=== PATIENT | female | born 1950 | race Caucasian/White ===

== ENCOUNTER → 2019-10-24 09:23 | Outpatient (CLI) | payer MEDICARE, OTHER, SELFPAY | PROVIDERS: PCP Physician Assistant; Referring Provider Obstetrics & Gynecology; Visit Provider Obstetrics & Gynecology | DX: M85.852 Other specified disorders of bone density and structure, left thigh (principal); Z78.0 Asymptomatic menopausal state | CPT/HCPCS: 77080 ==

== ENCOUNTER → 2022-01-12 11:33 | Outpatient (CLI) | payer MEDICARE, OTHER, SELFPAY ==
--- NOTE | 2022-01-12 | DI.MRI.S_ITS ---
PROCEDURE: MR SHOULDER RT WO CON INDICATIONS: Calcific tendinitis of right shoulder TECHNIQUE: Noncontrast oblique coronal T2 fast spin echo with fat saturation, oblique sagittal T1 spin echo and T2 fast spin echo with fat saturation, axial T1 spin echo and T2 fast spin echo with fat saturation through the shoulder. COMPARISON: None. FINDINGS: Image quality: Excellent. Rotator cuff: Postsurgical changes are noted in lateral shoulder soft tissue from prior rotator cuff tendon repair. There is tendinosis and low-grade articular and bursal surface partial thickness tear involving distal supraspinatus at its insertion on the humeral head extending to musculotendinous junction. Distal infraspinatus tendinosis is seen. Distal subscapularis tendinosis is also noted. No full-thickness rotator cuff tendon rupture. Sagittal images demonstrate mild supraspinatus muscle atrophy. Bones and bursae: No bone marrow contusions or fractures. Moderate acromioclavicular joint osteoarthritic changes are seen with joint space narrowing, subchondral sclerosis and cyst formation and inferior marginal osteophyte formation depressing on musculotendinous junction of supraspinatus. The acromion demonstrates conventional anatomy, without an os acromiale. Small amount of subacromial subdeltoid bursal fluid is seen. Capsule and soft tissues: There is signal abnormality and contour irregularity involving superior anterior labrum at 12 to 1 o'clock position. The long head of the biceps tendon demonstrates normal location and morphology. The rotator interval appears normal, without fibrosis. The coracohumeral ligament is normal in thickness. IMPRESSION: 1. Prior rotator cuff tendon repair with postsurgical changes. Moderate acromioclavicular joint osteoarthritis. No gross marrow edema. No fracture or dislocation. Small subacromial subdeltoid bursal fluid. 2. Distal supraspinatus tendinosis and low-grade articular and bursal surface partial thickness tear extending to musculotendinous junction. Distal infraspinatus and subscapularis tendinosis. Very mild supraspinatus muscle atrophy. No full-thickness rotator cuff tendon rupture. 3. Finding is concerning for superior anterior labral tear at 12 to 1 o'clock position. Dictated by: Bunny Samayoa M.D. on 01/12/2022 at 12:49 Approved by: Bunny Samayoa M.D. on 01/12/2022 at 12:52
== END ==
PROVIDERS: PCP Physician Assistant; Referring Provider Orthopaedic Surgery; Visit Provider Orthopaedic Surgery
DX: M75.31 Calcific tendinitis of right shoulder (principal); M75.111 Incomplete rotator cuff tear or rupture of right shoulder, not specified as traumatic; M19.011 Primary osteoarthritis, right shoulder
CPT/HCPCS: 73221

== ENCOUNTER → 2022-05-20 10:42 | Outpatient (CLI) | payer MEDICARE, OTHER, SELFPAY | PROVIDERS: PCP Nurse Practitioner; Referring Provider Nurse Practitioner; Visit Provider Nurse Practitioner | DX: M81.0 Age-related osteoporosis without current pathological fracture (principal); M85.89 Other specified disorders of bone density and structure, multiple sites | CPT/HCPCS: 77080 ==

== ENCOUNTER 2023-04-05 12:08 | Emergency (ER) | payer MEDICARE, OTHER, SELFPAY ==
[2023-04-05] VITALS (14 sets, daily range): BP systolic 104–161; BP diastolic 62–74; PULSE 85–107; RESP 16–32; TEMP 36.6; O2SAT 93–99; BMI 20.1
--- NOTE | 2023-04-05 12:22 | DI.RAD.S_ITS ---
PROCEDURE: XR RIBS BI MIN 4V W CXR1V INDICATIONS: pain TECHNIQUE: 4 views of the bilateral ribs were acquired, along with a single view chest. COMPARISON: None. FINDINGS: Surgical changes and devices: None. Bones and chest wall: No fractures or dislocations. No suspicious bony lesions. Overlying soft tissues appear unremarkable. Lungs and pleura: There is small to moderate amount of left pleural effusion with left basilar atelectasis. No pneumothorax. Mediastinum: Mediastinal contours appear normal. Heart size is enlarged. IMPRESSION: 1. No gross displaced rib fracture is seen. 2. Small to moderate left pleural effusion. Left basilar atelectasis. No pneumothorax. Dictated by: Bunny Samayoa M.D. on 04/05/2023 at 12:59 Approved by: Bunny Samayoa M.D. on 04/05/2023 at 13:05
[2023-04-05 12:41] LABS: INR 1.2 (0.9-1.3); Prothrombin Time 14.1 SECONDS (10.1-12.7)
[2023-04-05 12:43] LABS: Add Manual Diff / Slide Review NO; Basophils Absolute Auto 0 /uL (0-100); Basophils Percent Auto 0.4 % (0-2); Eosinophils Absolute Auto 0 /uL (0-450); Eosinophils Percent Auto 0.2 % (2-4); Hematocrit 32.8 % (36-46); Hemoglobin 11.3 g/dL (12.0-16.0); Lymphocytes Absolute Auto 1300 /uL (1100-4500); Lymphocytes Percent Auto 11.2 % (25-40); Mean Corpuscular HGB Conc 34.3 % (30-36); Mean Corpuscular Hemoglobin 30.4 PG (26-34); Mean Corpuscular Volume 88.5 fL (80-100); Monocytes Absolute Auto 900 /uL (0-900); Neutrophils Absolute Auto 9100 /uL (1500-7000); Neutrophils Percent Auto 80.2 % (50-75); Platelet Count 424 X10^3/uL (150-400); Red Blood Cell Count 3.71 X10^6/uL (4.0-5.2); Red Cell Distribution Width 12.2 % (11.6-14.8); White Blood Cell Count 11.3 X10^3/uL (4.5-11.0)
[2023-04-05 12:44] LABS: PTT Partial Thromboplastin Tim 31 SECONDS (26-36)
[2023-04-05 12:46] LABS: Alanine Aminotransferase 64 IU/L (<35); Albumin 4.1 g/dL (3.5-5.0); Albumin Globulin Ratio 1.2 (1.0-2.8); Alkaline Phosphatase 200 U/L (38-126); Aspartate Aminotransferase 63 IU/L (14-36); BUN Creatinine Ratio 22.5 (6-22); Bilirubin Total 0.6 mg/dL (0.2-1.3); Blood Urea Nitrogen 9 mg/dL (7-17); Calcium 9.4 mg/dL (8.4-10.2); Carbon Dioxide 27 mmol/L (22-32); Chloride 93 mmol/L (98-107); Creatine Kinase 81 U/L (30-135); Estimated Glomerular Filt Rate > 60 mL/min (>60); Globulin 3.4 g/dL (1.7-4.1); Glucose 119 mg/dL (80-110); HEMOLYSIS < 15 (0-50); Lipase 68 U/L (23-300); Magnesium 2.1 mg/dL (1.6-2.3); Potassium 4.2 mmol/L (3.4-5.1); Sodium 128 mmol/L (137-145); Total Protein 7.5 g/dL (6.3-8.2)
[2023-04-05 12:58] LABS: Troponin I < 0.012 ng/mL (0.01-0.034)
--- NOTE | 2023-04-05 14:03 | ED_ITS ---
HPI - Chest Pain General Chief Complaint: Chest Pain Stated Complaint: sent by [facility]/chest pain Time Seen by Provider: 04/05/23 12:22 History of Present Illness HPI narrative: Patient healthy 72-year-old female presents today with left-sided chest discomfort. He reports that a week and a half ago she was helping her they are pulling up crab pots she was pulling up the boot wheeze she thought she strained her right shoulder which had previously had surgery on it. She had some discomfort around her chest which was moving around and today it is mostly on the left side. It is very positional. She reports that it is worse when she lays down better when she sits. She reports that she was taking some shallow breaths because it hurt. It is not really reproducible with palpation. She also thinks that she might have virus small cold. She says she she is had decreased appetite. No fever or chills. She does not have a productive cough. He denies any actual fall or injury. Related Data Home Medications Medication Instructions Recorded Confirmed supplement list scanned to chart PO 05/05/22 04/05/23 Previous Rx's Medication Instructions Recorded colchicine 0.6 mg capsule 0.6 mg PO DAILY #90 caps 04/05/23 colchicine 0.6 mg tablet 0.6 mg PO DAILY #90 tabs 04/05/23 ibuprofen 600 mg tablet 600 mg PO Q8H #120 tabs 04/05/23 omeprazole 20 mg capsule,delayed 20 mg PO DAILY #60 caps 04/05/23 release Allergies Allergy/AdvReac Type Severity Reaction Status Date / Time No Known Drug Allergies Allergy Unverified 04/05/23 11:39 Review of Systems Review of Systems ROS Unobtainable: All systems reviewed & are unremarkable except as noted in HPI and below Patient History Medical History Chicken pox (~1955) Endometriosis (~1979) Measles (~1955) Mumps (~1953) Osteopenia determined by x-ray Rubella (~1963) Shoulder pain (~2020) Tendonitis, calcifying, shoulder Surgical History Anesthesia History of hysterectomy (~1981) Family History Father Congestive heart failure Mother Cancer Social History Smoking Status: Never smoker Smoking Status: Never smoker Exam Initial Vital Signs Initial Vital Signs: Vital Signs Temperature 97.8 F 04/05/23 12:17 Pulse Rate 101 H 04/05/23 12:17 Respiratory Rate 16 04/05/23 12:17 Blood Pressure 131/66 04/05/23 12:17 Pulse Oximetry 99 04/05/23 12:17 Oxygen Delivery Method Room Air 04/05/23 12:17 GENERAL: Alert pleasant 72-year-old female and in no acute distress. HEENT: Head atraumatic,EOMI, pupils reactive, face symmetric, moist mucous membranes CARDIOVASCULAR: Regular rate and rhythm without murmurs, rubs or gallops. RESPIRATORY: No respiratory distress no conversational dyspnea decreased breath sounds on the left no crackles rales or rhonchi ABDOMEN: Soft, nontender. Normoactive bowel sounds all 4 quadrants. No guarding or rebound. EXTREMITIES: Normal range of motion, no clubbing or edema. Neurovascularly intact NEUROLOGICAL: Alert and oriented x4.Normal gait and speech. Cranial nerves II through XII grossly intact. SKIN: Warm, dry, no laceration, no petechiae, no rashes or lesions. Course Orders Ordered: ED Orders 04/05/23 12:20 CRP [C-Reactive Protein Quant] Stat Complete Blood Count AUTO DIFF Stat Comprehensive Metabolic Panel Stat ESR [Erythrocyte Sedimentation Rate] Stat Lipase Stat Magnesium Stat PTT Partial Thromboplastin Josias Stat Procalcitonin Stat Prothrombin Time INR Stat Troponin & CK Cardiac Panel Stat EKG-12 Lead Stat 04/05/23 12:22 XR ribs BI min 4V w CXR1V Stat 04/05/23 14:09 CT chest w con Stat 04/05/23 17:22 Respiratory Panel (Film Array) Stat Discontinued Medications Colchicine (Colchicine 0.6 Mg Tablet) 0.6 mg PO NOW ONE Stop: 04/05/23 16:31 Last Admin: 04/05/23 17:04 Dose: 0.6 mg Documented By: MICKI Ketorolac Tromethamine (Ketorolac 30 Mg/Ml Vial) 15 mg IV NOW ONE Stop: 04/05/23 12:23 Last Admin: 04/05/23 12:15 Dose: Not Given Documented By: SHANNON Vital Signs Vital signs: Vital Signs - 8 hr 04/05/23 12:17 04/05/23 12:18 04/05/23 12:20 Temperature 97.8 F Pulse Rate 101 H 107 H 103 H Respiratory Rate 16 Blood Pressure 131/66 Pulse Oximetry 99 97 97 Oxygen Delivery Method Room Air 04/05/23 12:20 04/05/23 12:30 04/05/23 12:30 Temperature Pulse Rate 98 H Respiratory Rate Blood Pressure 135/66 124/63 Pulse Oximetry 97 Oxygen Delivery Method 04/05/23 13:00 04/05/23 13:00 04/05/23 13:30 Temperature Pulse Rate 102 H Respiratory Rate Blood Pressure 135/62 133/74 Pulse Oximetry 98 Oxygen Delivery Method 04/05/23 13:30 04/05/23 14:00 04/05/23 14:00 Temperature Pulse Rate 94 H 93 H Respiratory Rate 21 20 Blood Pressure 137/74 Pulse Oximetry 98 98 Oxygen Delivery Method 04/05/23 14:30 04/05/23 14:30 04/05/23 15:10 Temperature Pulse Rate 98 H 94 H Respiratory Rate 20 27 H Blood Pressure 161/70 H Pulse Oximetry 98 99 Oxygen Delivery Method 04/05/23 15:30 04/05/23 15:38 04/05/23 15:38 Temperature Pulse Rate 88 85 Respiratory Rate 32 H 27 H Blood Pressure 117/66 Pulse Oximetry 93 98 Oxygen Delivery Method 04/05/23 16:00 04/05/23 16:00 04/05/23 16:30 Temperature Pulse Rate 89 Respiratory Rate 24 Blood Pressure 104/65 129/71 Pulse Oximetry 97 Oxygen Delivery Method 04/05/23 16:30 04/05/23 17:00 04/05/23 17:00 Temperature Pulse Rate 89 92 H Respiratory Rate 25 H 27 H Blood Pressure 124/73 Pulse Oximetry 96 97 Oxygen Delivery Method Room Air MDM - Chest Pain Lab Data 04/05/23 12:20 04/05/23 12:20 Labs: Lab Results 04/05/23 04/05/23 04/05/23 Range/Units 12:20 12:20 12:20 WBC 11.3 H (4.5-11.0) X10^3/uL RBC 3.71 L (4.0-5.2) X10^6/uL Hgb 11.3 L (12.0-16.0) g/dL Hct 32.8 L (36-46) % MCV 88.5 (80-100) fL MCH 30.4 (26-34) PG MCHC 34.3 (30-36) % RDW 12.2 (11.6-14.8) % Plt Count 424 H (150-400) X10^3/uL Neut % (Auto) 80.2 H (50-75) % Lymph % (Auto) 11.2 L (25-40) % Emmet % (Auto) 8.0 (3-14) % Eos % (Auto) 0.2 L (2-4) % Baso % (Auto) 0.4 (0-2) % Neut # (Auto) 9100 H (3692-8196) /uL Lymph # (Auto) 1300 (6379-5514) /uL Emmet # (Auto) 900 (0-900) /uL Eos # (Auto) 0 (0-450) /uL Baso # (Auto) 0 (0-100) /uL ESR (0-20) MM/HR PT 14.1 H (10.1-12.7) SECONDS INR 1.2 (0.9-1.3) APTT 31 (26-36) SECONDS Sodium 128 L (137-145) mmol/L Potassium 4.2 (3.4-5.1) mmol/L Chloride 93 L (98-107) mmol/L Carbon Dioxide 27 (22-32) mmol/L BUN 9 (7-17) mg/dL Creatinine 0.40 L (0.52-1.04) mg/dL Estimated GFR > 60 (>60) mL/min BUN/Creatinine Ratio 22.5 H (6-22) Glucose 119 H (80-110) mg/dL Calcium 9.4 (8.4-10.2) mg/dL Magnesium 2.1 (1.6-2.3) mg/dL Total Bilirubin 0.6 (0.2-1.3) mg/dL AST 63 H (14-36) IU/L ALT 64 H (<35) IU/L Alkaline Phosphatase 200 H (38-126) U/L Total Creatine Kinase 81 (30-135) U/L Troponin I < 0.012 (0.01-0.034) ng/mL C-Reactive Protein (<1.0) mg/dL Total Protein 7.5 (6.3-8.2) g/dL Albumin 4.1 (3.5-5.0) g/dL Globulin 3.4 (1.7-4.1) g/dL Albumin/Globulin Ratio 1.2 (1.0-2.8) Lipase 68 (23-300) U/L Procalcitonin (<0.5) ng/mL Chlamy pneumoniae PCR (Not Detect) Adenovirus (PCR) (Not Detect) B. pertussis DNA (PCR) (Not Detecte) B.parapertussis DNA PCR (Not Detecte) Coronavirus OC43 (PCR) (Not Detect) Coronavirus HKU1 (PCR) (Not Detect) Coronavirus 229E (PCR) (Not Detect) SARS-CoV-2 (PCR) (Not Detecte) Coronavirus NL63 (PCR) (Not Detect) Human Metapneumovir PCR (Not Detect) Influenza Type A (PCR) (Not Detect) Influenza Type B (PCR) (Not Detect) M. pneumoniae (PCR) (Not Detect) Parainfluenza 1 (PCR) (Not Detect) Parainfluenza 2 (PCR) (Not Detect) Parainfluenza 3 (PCR) (Not Detect) Parainfluenza 4 (PCR) (Not Detect) RSV (PCR) (Not Detect) Entero/Rhino (PCR) (Not Detect) 04/05/23 04/05/23 04/05/23 Range/Units 12:20 12:20 12:20 WBC (4.5-11.0) X10^3/uL RBC (4.0-5.2) X10^6/uL Hgb (12.0-16.0) g/dL Hct (36-46) % MCV (80-100) fL MCH (26-34) PG MCHC (30-36) % RDW (11.6-14.8) % Plt Count (150-400) X10^3/uL Neut % (Auto) (50-75) % Lymph % (Auto) (25-40) % Emmet % (Auto) (3-14) % Eos % (Auto) (2-4) % Baso % (Auto) (0-2) % Neut # (Auto) (3113-4287) /uL Lymph # (Auto) (6214-5572) /uL Emmet # (Auto) (0-900) /uL Eos # (Auto) (0-450) /uL Baso # (Auto) (0-100) /uL ESR 74 H (0-20) MM/HR PT (10.1-12.7) SECONDS INR (0.9-1.3) APTT (26-36) SECONDS Sodium (137-145) mmol/L Potassium (3.4-5.1) mmol/L Chloride (98-107) mmol/L Carbon Dioxide (22-32) mmol/L BUN (7-17) mg/dL Creatinine (0.52-1.04) mg/dL Estimated GFR (>60) mL/min BUN/Creatinine Ratio (6-22) Glucose (80-110) mg/dL Calcium (8.4-10.2) mg/dL Magnesium (1.6-2.3) mg/dL Total Bilirubin (0.2-1.3) mg/dL AST (14-36) IU/L ALT (<35) IU/L Alkaline Phosphatase (38-126) U/L Total Creatine Kinase (30-135) U/L Troponin I (0.01-0.034) ng/mL C-Reactive Protein 17.5 H (<1.0) mg/dL Total Protein (6.3-8.2) g/dL Albumin (3.5-5.0) g/dL Globulin (1.7-4.1) g/dL Albumin/Globulin Ratio (1.0-2.8) Lipase (23-300) U/L Procalcitonin 0.08 (<0.5) ng/mL Chlamy pneumoniae PCR (Not Detect) Adenovirus (PCR) (Not Detect) B. pertussis DNA (PCR) (Not Detecte) B.parapertussis DNA PCR (Not Detecte) Coronavirus OC43 (PCR) (Not Detect) Coronavirus HKU1 (PCR) (Not Detect) Coronavirus 229E (PCR) (Not Detect) SARS-CoV-2 (PCR) (Not Detecte) Coronavirus NL63 (PCR) (Not Detect) Human Metapneumovir PCR (Not Detect) Influenza Type A (PCR) (Not Detect) Influenza Type B (PCR) (Not Detect) M. pneumoniae (PCR) (Not Detect) Parainfluenza 1 (PCR) (Not Detect) Parainfluenza 2 (PCR) (Not Detect) Parainfluenza 3 (PCR) (Not Detect) Parainfluenza 4 (PCR) (Not Detect) RSV (PCR) (Not Detect) Entero/Rhino (PCR) (Not Detect) 04/05/23 Range/Units 17:22 WBC (4.5-11.0) X10^3/uL RBC (4.0-5.2) X10^6/uL Hgb (12.0-16.0) g/dL Hct (36-46) % MCV (80-100) fL MCH (26-34) PG MCHC (30-36) % RDW (11.6-14.8) % Plt Count (150-400) X10^3/uL Neut % (Auto) (50-75) % Lymph % (Auto) (25-40) % Emmet % (Auto) (3-14) % Eos % (Auto) (2-4) % Baso % (Auto) (0-2) % Neut # (Auto) (7124-9598) /uL Lymph # (Auto) (6506-1199) /uL Emmet # (Auto) (0-900) /uL Eos # (Auto) (0-450) /uL Baso # (Auto) (0-100) /uL ESR (0-20) MM/HR PT (10.1-12.7) SECONDS INR (0.9-1.3) APTT (26-36) SECONDS Sodium (137-145) mmol/L Potassium (3.4-5.1) mmol/L Chloride (98-107) mmol/L Carbon Dioxide (22-32) mmol/L BUN (7-17) mg/dL Creatinine (0.52-1.04) mg/dL Estimated GFR (>60) mL/min BUN/Creatinine Ratio (6-22) Glucose (80-110) mg/dL Calcium (8.4-10.2) mg/dL Magnesium (1.6-2.3) mg/dL Total Bilirubin (0.2-1.3) mg/dL AST (14-36) IU/L ALT (<35) IU/L Alkaline Phosphatase (38-126) U/L Total Creatine Kinase (30-135) U/L Troponin I (0.01-0.034) ng/mL C-Reactive Protein (<1.0) mg/dL Total Protein (6.3-8.2) g/dL Albumin (3.5-5.0) g/dL Globulin (1.7-4.1) g/dL Albumin/Globulin Ratio (1.0-2.8) Lipase (23-300) U/L Procalcitonin (<0.5) ng/mL Chlamy pneumoniae PCR Not detected (Not Detect) Adenovirus (PCR) Not detected (Not Detect) B. pertussis DNA (PCR) Not detected (Not Detecte) B.parapertussis DNA PCR Not detected (Not Detecte) Coronavirus OC43 (PCR) Not detected (Not Detect) Coronavirus HKU1 (PCR) Not detected (Not Detect) Coronavirus 229E (PCR) Not detected (Not Detect) SARS-CoV-2 (PCR) Not detected (Not Detecte) Coronavirus NL63 (PCR) Not detected (Not Detect) Human Metapneumovir PCR Not detected (Not Detect) Influenza Type A (PCR) Not detected (Not Detect) Influenza Type B (PCR) Not detected (Not Detect) M. pneumoniae (PCR) Not detected (Not Detect) Parainfluenza 1 (PCR) Not detected (Not Detect) Parainfluenza 2 (PCR) Not detected (Not Detect) Parainfluenza 3 (PCR) Not detected (Not Detect) Parainfluenza 4 (PCR) Not detected (Not Detect) RSV (PCR) Not detected (Not Detect) Entero/Rhino (PCR) Not detected (Not Detect) Imaging Data Chest x-ray: Radiologist's Impression: PROCEDURE:? XR RIBS BI MIN 4V W CXR1V ? INDICATIONS:? pain ? TECHNIQUE:? 4 views of the bilateral ribs were acquired, along with a single view chest.? ? ? COMPARISON:? None. ? FINDINGS:? ? Surgical changes and devices:? None.? ? Bones and chest wall:? No fractures or dislocations.? No suspicious bony lesions.? Overlying soft tissues appear unremarkable.? ? Lungs and pleura:? There is small to moderate amount of left pleural effusion with left basilar atelectasis.? No pneumothorax. ? Mediastinum:? Mediastinal contours appear normal.? Heart size is enlarged.? ? IMPRESSION:? ? 1. No gross displaced rib fracture is seen. ? 2. Small to moderate left pleural effusion.? Left basilar atelectasis.? No pneumothorax.? CT scan - chest: Radiologist's Impression: PROCEDURE:? CT CHEST W CON ? INDICATIONS:? left pleural effusion pain ? TECHNIQUE:? After the administration of intravenous contrast, 5 mm thick sections acquired from the pulmonary apices to the posterior costophrenic angles.? 1 mm axial lung, 5 mm thick coronal and sagittal reformats and 7 mm axial MIP were acquired.? For radiation dose reduction, the following was used:? automated exposure control, adjustment of mA and/or kV according to patient size.? ? COMPARISON:? None. ? FINDINGS:? Image quality:? Excellent.? ? Lungs and pleura:? Small left pleural effusion with left basilar atelectasis.? No suspicious pulmonary nodules.? No consolidation.? No pleural mass. ? Mediastinum:? Cardiomegaly.? Moderate pericardial effusion with pericardial thickening.? Convex appearance of the atrium and ventricles.? No adenopathy.? No hiatal hernia. ? Bones and chest wall:? No suspicious bony lesions.? No vertebral body compression fractures.? No axillary or supraclavicular adenopathy by size criteria.? Thyroid gland is unremarkable .? ? Abdomen:? Subcentimeter hypoattenuating liver lesion, too small to characterize by CT. ? IMPRESSION:? ? Moderate pericardial effusion with pericardial thickening, concerning for pericarditis.? No evidence of tamponade. ? Small left pleural effusion with left basilar atelectasis.? Etiology uncertain, as there is no mass or pleural lesion.? ? Dictated by: Kevin Bull M.D. on 04/05/2023 at 15:39 ? ? ECG Data Interpretation: Normal sinus rhythm rate 102 MT interval 158 QRS [address] changes intermittent T-wave inversions noted in V3 and V2 No evidence of electrical all trans MDM Narrative Medical decision making narrative: Patient 62-year-old female presenting today with left-sided chest pain. She thought that it was musculoskeletal strain however not really getting better. She is having upper respiratory like symptoms but no fever chills. Blood work is overall reassuring some mild leukocytosis of 11.3. He is had some mild electrolyte abnormalities she is an elevated CRP of 17.5 and an ESR of 74. Chest x-ray does show a pleural effusion which is concerning. She denies any falls. CT was done and actually confirms moderate pericardial effusion and probable pericarditis. Pericarditis correlates clinically with her positional pain. I called and spoken with Dr. Salas on-call cardiology recommends colchicine 0.6 mg daily for 3 months and ibuprofen 600 mg 3 times a day with a PPI. She also recommends an outpatient echocardiogram and cardiology evaluation. I have called and updated patient's PCP cardiology recommendations an echocardiogram and follow-up appointment are scheduled. Discharge Plan Departure Patient Disposition: Home Clinical Impression: Pericarditis, Acute pericardial effusion Instructions: Pericarditis -- Adult Activity Restrictions/Additional Instructions: *You have been diagnosed with pericarditis and pericardial effusion *What to do: At this time you will need an outpatient echocardiogram. [facility] call you about this. You also need cardiology referral. *Continue to take medications as directed --> [facility] Colchicine 0.6 mg once daily for 3 months Ibuprofen 600 mg 3 times a day Omeprazole 40 mg once daily *Follow up with your primary care provider in 2-3 days or call [phone] *Return to ER if you should have increasing chest pain shortness of breath fever or any new, worsening or concerning symptoms Prescriptions: New colchicine 0.6 mg capsule 0.6 mg PO DAILY Qty: 90 0RF ibuprofen 600 mg tablet 600 mg PO Q8H Qty: 120 0RF omeprazole 20 mg capsule,delayed release(DR/EC) 20 mg PO DAILY Qty: 60 0RF colchicine 0.6 mg tablet 0.6 mg PO DAILY Qty: 90 0RF No Action supplement list scanned to chart PO Referrals: Merle Knowles ARNP [Primary Care Provider] - Hope Tenorio DO [Physician] - Stand Alone Forms: Patient Portal/API
--- NOTE | 2023-04-05 14:09 | DI.CT.S_ITS ---
PROCEDURE: CT CHEST W CON INDICATIONS: left pleural effusion pain TECHNIQUE: After the administration of intravenous contrast, 5 mm thick sections acquired from the pulmonary apices to the posterior costophrenic angles. 1 mm axial lung, 5 mm thick coronal and sagittal reformats and 7 mm axial MIP were acquired. For radiation dose reduction, the following was used: automated exposure control, adjustment of mA and/or kV according to patient size. COMPARISON: None. FINDINGS: Image quality: Excellent. Lungs and pleura: Small left pleural effusion with left basilar atelectasis. No suspicious pulmonary nodules. No consolidation. No pleural mass. Mediastinum: Cardiomegaly. Moderate pericardial effusion with pericardial thickening. Convex appearance of the atrium and ventricles. No adenopathy. No hiatal hernia. Bones and chest wall: No suspicious bony lesions. No vertebral body compression fractures. No axillary or supraclavicular adenopathy by size criteria. Thyroid gland is unremarkable . Abdomen: Subcentimeter hypoattenuating liver lesion, too small to characterize by CT. IMPRESSION: Moderate pericardial effusion with pericardial thickening, concerning for pericarditis. No evidence of tamponade. Small left pleural effusion with left basilar atelectasis. Etiology uncertain, as there is no mass or pleural lesion. Dictated by: Kevin Bull M.D. on 04/05/2023 at 15:39 Approved by: Kevin Bull M.D. on 04/05/2023 at 15:42
[2023-04-05 14:43] LABS: Procalcitonin 0.08 ng/mL (<0.5)
[2023-04-05 16:58] LABS: C-Reactive Protein Quant 17.5 mg/dL (<1.0)
[2023-04-05 17:00] LABS: Erythrocyte Sedimentation Rate 74 MM/HR (0-20)
[2023-04-05] MEDS: COLCHICINE 0.6 MG TABLET PO (17:04)
[2023-04-05 18:24] LABS: Adenovirus Not Detected (Not Detect); B. parapertussis Not Detected (Not Detecte); Bordetella pertussis Not Detected (Not Detecte); Chlamydophila pneumoniae Not Detected (Not Detect); Coronavirus 229E Not Detected (Not Detect); Coronavirus HKU1 Not Detected (Not Detect); Coronavirus NL 63 Not Detected (Not Detect); Coronavirus OC43 Not Detected (Not Detect); Human Metapneumovirus Not Detected (Not Detect); Human Rhinovirus/Enterovirus Not Detected (Not Detect); Influenza A Not Detected (Not Detect); Influenza B Not Detected (Not Detect); Mycoplasma pneumoniae Not Detected (Not Detect); Parainfluenza Virus 1 Not Detected (Not Detect); Parainfluenza Virus 2 Not Detected (Not Detect); Parainfluenza Virus 3 Not Detected (Not Detect); Parainfluenza Virus 4 Not Detected (Not Detect); Respiratory Syncytial Virus Not Detected (Not Detect); SARS- CoV-2 Not Detected (Not Detecte)
== END 2023-04-05 17:27 | disposition home or self-care (01) ==
PROVIDERS: Emergency Provider Emergency Medicine; PCP Nurse Practitioner
DX: I31.9 Disease of pericardium, unspecified (principal); I30.9 Acute pericarditis, unspecified
CPT/HCPCS: 36415; 71111; 71260; 80053; 82550; 83690; 83735; 84145; 84484; 85025; 85610; 85651; 85730; 86140; 87633; 93005; 99284

== ENCOUNTER → 2023-04-16 12:58 | Outpatient (CLI) | payer MEDICARE, OTHER, SELFPAY ==
--- NOTE | 2023-04-16 12:59 | DI.ECHO.S_ITS ---
[facility] +---------+ : : [address] : [address] : : : : [id number] : : : : Phone: [phone]---------+ Echocardiogram Report + + :Name: JAKOB SOLANO Study Date: 04/16/2023 Height: 64 in : :[facility] ReadingLocation: Weight: 125 lb : : Gender: Female BSA: 1.6 m2 : :: 1950 Age: 72 yrs BP: 106/66 mmHg: :Reason For Study: Chest Pain : :Ordering Physician: MILAGROS, : :NEO Performed By: Samira Genao : :Referring: NEO LINARES : + + Interpretation Summary The ejection fraction is estimated to be 65-70%. The right ventricle is normal size. There is a small to moderate pericardial effusion noted. There are no echocardiographic indications of cardiac tamponade. Procedure: A two-dimensional transthoracic echocardiogram with color flow and Doppler was performed. The study quality was technically adequate. There is no prior echocardiogram noted for this patient. The patient was in normal sinus rhythm during the exam. Left Ventricle: The left ventricle is normal in size. The ejection fraction is estimated to be 65-70%. Left ventricular wall motion is normal. Diastolic parameters suggest a relaxation abnormality of the left ventricle, consistent with probable normal filling pressures. Right Ventricle: The right ventricle is normal size. The right ventricular systolic function is normal. Atria: The left atrial size is normal. Right atrial size is normal. There is no Doppler evidence for an interatrial shunt. Mitral Valve: The mitral valve leaflets appear mildly thickened, but open well. There is no mitral valve stenosis. There is no mitral regurgitation noted. Aortic Valve: The aortic valve is trileaflet. The aortic valve opens well. There is mild aortic valve sclerosis. There is no aortic valve stenosis. No aortic regurgitation is present. Tricuspid Valve: The tricuspid valve is normal. There is no tricuspid stenosis. There is trace tricuspid regurgitation. Pulmonary artery pressures cannot be estimated because of the lack of a measurable TR jet velocity. Pulmonic Valve: The pulmonic valve leaflets are thin and pliable; valve motion is normal. There is no pulmonic valvular stenosis. There is no pulmonic valvular regurgitation. Great Vessels: The aortic root is normal size. The ascending aorta is normal in size. The pulmonary artery is normal size. The IVC is dilated (diameter is greater than 2.1 cm) yet it collapses greater than 50% with a sniff. This suggests a right atrial pressure of 8 mm Hg. Pericardium/ Pleura There is a small to moderate pericardial effusion noted. There are no echocardiographic indications of cardiac tamponade. There is no pleural effusion. MMode/2D Measurements & Calculations LVIDd: 3.8 cm LVOT diam: 1.9 cm LVIDs: 1.7 cm Ao root diam: 3.0 cm FS: 55.3 % asc Aorta Diam: 3.4 cm IVSd: 1.0 cm LVPWd: 0.90 cm LV sepulveda. diameter/BSA (cm/m^2): 2.4 LV sys. diameter/BSA (cm/m^2): 1.1 LA A2 area: 16.4 cm2 RA long axis: 5.7 cm LA A4 area: 18.3 cm2 RA area: 12.8 cm2 LA length (vol): 5.8 cm RA vol: 24.5 ml LA vol: 43.8 ml RA : 15.3 ml/m2 LA vol index: 27.3 ml/m2 IVC diam: 2.2 cm RVD1 (basal): 2.9 cm LVLs ap4: 5.2 cm LVLd ap2: 6.3 cm TAPSE_phl: 1.9 cm LVLs ap2: 5.1 cm Doppler Measurements & Calculations Ao V2 max: 133.3 cm/sec LVOT Max Anoop: 101.1 cm/sec Ao V2 mean: 91.7 cm/sec LV V1 max P.7 mmHg Ao max P.0 mmHg LV V1 VTI: 18.9 cm Ao mean P.0 mmHg JOSIAH(I,D): 2.1 cm2 Ao V2 VTI: 25.5 cm JOSIAH(V,D): 2.1 cm2 sev ratio: 0.74 JOSIAH indexed to BSA (cm^2/m^2): 1.3 MV E max anoop: 86.4 cm/sec SV(LVOT): 53.6 ml MV A max anoop: 60.0 cm/sec MV E/A: 1.4 Med Peak E' Anoop: 10.7 cm/sec E/E' med: 8.1 Lat Peak E' Anoop: 7.2 cm/sec E/E' lat: 12.1 E/e' average: 10.1 MV dec time: 0.11 sec AV VR_phl: 0.76 MV P1/2t-pr_phl: 33.0 msec JOSIAH(VTI)/BSA_phl: 1.3 Reading Physician:03:31 PM
== END ==
PROVIDERS: PCP Nurse Practitioner; Referring Provider Nurse Practitioner; Visit Provider Nurse Practitioner
DX: I35.8 Other nonrheumatic aortic valve disorders (principal); I30.9 Acute pericarditis, unspecified; I31.9 Disease of pericardium, unspecified; R07.9 Chest pain, unspecified
CPT/HCPCS: 93306

== ENCOUNTER → 2023-10-06 11:03 | Outpatient (CLI) | payer MEDICARE, OTHER, SELFPAY | PROVIDERS: PCP Family Medicine; Visit Provider Family Medicine | DX: N89.8 Other specified noninflammatory disorders of vagina (principal) | CPT/HCPCS: 87210 ==

== ENCOUNTER → 2025-02-26 12:43 | Outpatient (CLI) | payer MEDICARE, OTHER, SELFPAY ==
--- NOTE | 2025-02-26 12:45 | DI.RAD.S_ITS ---
PROCEDURE: XR LUMBAR SPINE MIN 4V INDICATIONS: r/o compression fx, OA TECHNIQUE: 5 views of the lumbar spine acquired, including flexion and extension views. COMPARISON: None. FINDINGS: Lumbar spine curvature and alignment: Mild levoscoliosis of the lower thoracic and lumbar spine appreciated. Grade 1 L4-5 spondylolisthesis due to degenerate facet disease featuring 3 mm of L4 anterior subluxation. Bones: There are no osseous abnormalities. Disc spaces: Mild L2-3, moderate L3-4 L4-5 L5-S1 degenerative disc disease noted. There is moderate L3-4 through L5-S1 degenerative facet disease Soft tissues: No soft tissue swelling, calcification or mass. IMPRESSION: Degeneration Dictated by: Girma Cooper M.D. on 02/27/2025 at 11:39 Approved by: Girma Cooper M.D. on 02/27/2025 at 11:40
== END ==
PROVIDERS: PCP Family Medicine; Referring Provider Chiropractor; Visit Provider Chiropractor
DX: S39.012A Strain of muscle, fascia and tendon of lower back, initial encounter (principal); M51.369 Other intervertebral disc degeneration, lumbar region without mention of lumbar back pain or lower extremity pain; M51.379 Other intervertebral disc degeneration, lumbosacral region without mention of lumbar back pain or lower extremity pain; M47.816 Spondylosis without myelopathy or radiculopathy, lumbar region; M47.817 Spondylosis without myelopathy or radiculopathy, lumbosacral region; X58.XXXA Exposure to other specified factors, initial encounter
CPT/HCPCS: 72110